=== PATIENT | male | born 1965 | race Caucasian/White ===

== ENCOUNTER 2019-06-22 06:31 | Outpatient (CLI) | payer BC ==
[2019-06-22 15:22] LABS: #Basophils 0.1 thou/uL (0.0-0.2); #Eosinphils 0.5 thou/uL (0.0-0.7); #Lymphocytes 2.3 thou/uL (1.20-3.40); #Monocytes 1.1 thou/uL (0.11-0.59); #Neutrophils 8.6 thou/uL (1.40-6.50); %Basophils 0.6 % (0.0-1.0); %Eosinophils 4.2 % (0.0-10.0); %Lymphocytes 18.6 % (21.0-51.0); %Monocytes 8.7 % (0.0-10.0); %Neutrophils 67.9 % (42.0-75.0); Hemoglobin 13.9 g/dL (14.0-18.0); Mean Corpuscular HGB CONC 34.1 g/dL (32.0-36.0); Mean Corpuscular Hemoglobin 30.3 pg (27.0-31.0); Mean Corpuscular Volume 88.9 fL (78.0-98.0); Mean Platelet Volume 7.8 fL (7.4-10.4); Platelet Count 241 thou/uL (130-400); Red Blood Cell (RBC) Count 4.58 mill/uL (4.70-6.10); White Blood Cell (WBC) Count 12.6 thou/uL (4.8-10.8)
[2019-06-22 15:43] LABS: Anion Gap 13 mmol/L (10-20); BUN (Urea Nitrogen) 12 mg/dL (8.4-25.7); Calc. Creatinine Clearance 0 mL/min (70-130); Carbon Dioxide 25 mmol/L (22-29); Chloride 102 mmol/L (98-107); Estimated GFR-MDRD 57; Glucose 73 mg/dL (70-105); Sodium 136 mmol/L (136-145)
--- NOTE | 2019-06-26 10:31 | EKG ---
Test Reason : Blood Pressure : / mmHG Vent. Rate : 061 BPM Atrial Rate : 061 BPM P-R Int : 232 ms QRS Dur : 110 ms QT Int : 424 ms P-R-T Axes : 033 078 017 degrees QTc Int : 426 ms Sinus rhythm with 1st degree A-V block Otherwise normal ECG When compared with ECG of 07-NOV-2009 11:10, No significant change was found Confirmed by DONG ASTUDILLO (2) on 06/26/2019 10:31:16 AM Referred By: VALERIO Confirmed By:DONG ASTUDILLO
== END 2019-06-22 06:32 | disposition home or self-care (01) ==
LOC: LABBT 06:31
PROVIDERS: ATTEND Surgery
DX: Z01.818 Encounter for other preprocedural examination (principal); K40.90 Unilateral inguinal hernia, without obstruction or gangrene, not specified as recurrent
CPT/HCPCS: 80048; 85025; 93005; 93010

== ENCOUNTER 2019-06-25 09:15 | Day surgery (SDC) | payer BC ==
[2019-06-22 14:33] VITALS: BMI 34.8
[2019-06-25] MEDS ORDERED: Fentanyl 100 MCG/2 ML VIAL ONE ×2 (10:29→12:30)
[2019-06-25] MEDS ORDERED: Lidocaine 2% Jelly 5 ML TUBE ONE (10:29)
[2019-06-25] MEDS ORDERED: HYDROmorphone 0.5 MG/0.5 ML SYRINGE ONE (10:29)
[2019-06-25] MEDS ORDERED: Midazolam HCl 2 mg/2 ml Vial ONE (10:29)
[2019-06-25] MEDS ORDERED: Levofloxacin 500 mg/D5W 100 ml Premix Bag ONE (10:31)
[2019-06-25] MEDS ORDERED: Bupivacaine 0.25% HCL 30 ML VIAL ONE (10:33)
[2019-06-25] MEDS ORDERED: Lidocaine 1% w/Epinephrine 1:100K 20 ML VIAL ONE (10:33)
--- NOTE | 2019-06-25 12:34 | OP ---
DATE OF PROCEDURE: 06/25/2019 PREOPERATIVE DIAGNOSIS: Left inguinal hernia. POSTOPERATIVE DIAGNOSIS: Left inguinal hernia. PROCEDURE PERFORMED: Da Jonathan laparoscopic left inguinal hernia repair with mesh, 3DMax large. ANESTHESIA: General. ESTIMATED BLOOD LOSS: Minimal. COMPLICATIONS: None. SPECIMEN: None. FINDINGS: Left inguinal hernia. DESCRIPTION OF PROCEDURE: The patient was taken to the operating room and laid supine on the operating room table. After general anesthetic was obtained, a Campos was placed. The abdomen was prepped and draped in a sterile fashion. Left subcostal 5 mm Optiview trocar was placed in usual fashion. High-flow pneumoperitoneum was obtained. An 11 mm port was placed above the umbilicus. An 8 mm robot assist ports were placed in the left and right of the umbilicus. The patient was placed in Trendelenburg position. All ports were docked to the robot. The peritoneum was taken down in the left inguinal region. There was a large left indirect inguinal hernia sac. This was dissected away from the cord structures. The preperitoneal space was bluntly dissected to pubic tubercle medially to the anterior superior iliac crest laterally. The shelving edge was fully exposed. The hernia sac was dissected back high up on to the peritoneum. 3DMax large mesh was brought in and M-labeled medial aspect was placed over pubic tubercle medially. The mesh was laid out to cover the femoral, the direct and indirect areas. The mesh was sewn via Vicryl suture to pubic tubercle medially and to the posterior fascia laterally. The peritoneum was reapproximated using 3-0 Stratafix. All needles were removed from the abdomen and accounted for. All port sites were infiltrated using local anesthetic. All ports were removed under camera visualization. Pneumoperitoneum was let down. Maxon was used to close the fascial defect below the umbilicus. All incisions were irrigated and closed using 4-0 Monocryl and Dermabond. The patient was sent to Recovery in stable condition. All instrument counts, needle counts, and lap counts were correct. Job ID: [id number]
[2019-06-25] MEDS ORDERED: Morphine 2 MG/ML SYRINGE ONE (13:16)
[2019-06-25] MEDS ORDERED: HYDROcodone/Acetaminophen 5/325 mg Tablet ONE (14:24)
== END 2019-06-25 16:35 | disposition home or self-care (01) ==
LOC: SDC 09:15
PROVIDERS: ATTEND Surgery
PROC: 0YU64JZ Supplement Left Inguinal Region with Synthetic Substitute, Percutaneous Endoscopic Approach (ICD-10-PCS; principal; 2019-06-25)
PROC: 8E0W4CZ Robotic Assisted Procedure of Trunk Region, Percutaneous Endoscopic Approach (ICD-10-PCS; principal; 2019-06-25)
DX: K40.90 Unilateral inguinal hernia, without obstruction or gangrene, not specified as recurrent (principal); Z79.84 Long term (current) use of oral hypoglycemic drugs; Z79.899 Other long term (current) drug therapy; Z88.0 Allergy status to penicillin; Z91.018 Allergy to other foods
CPT/HCPCS: C1781; J1170; J1956; J2250; J2270; J3010; S0020

== ENCOUNTER 2022-01-07 07:34 | Day surgery (SDC) | payer BC ==
[2022-01-05 13:21] VITALS: BMI 32.5
[~2022-01-07 07:34] MED LIST: Midazolam HCl 2 mg/2 ml Vial ONE; fentaNYL Citrate/PF 100 MCG/2 ML SYRINGE ONE
[2022-01-07] MEDS ORDERED: Cyclopentolate 1% Opth Drop 2 ML BOT ONE (07:57)
[2022-01-07] MEDS ORDERED: Phenylephrine 2.5% Ophth Soln 5 ML BOT ONE (07:57)
[2022-01-07] MEDS ORDERED: Famotidine/PF 20 mg/2ml Vial ONE (08:45)
[2022-01-07] MEDS ORDERED: Lidocaine 4% PF 5 ML AMP ONE (08:47)
[2022-01-07] MEDS ORDERED: PROPOFOL 200 MG/20 ML VIAL ONE (08:47)
[2022-01-07] MEDS ORDERED: Maxitrol 0.1% Opth Oint 3.5 GM TUBE ONE (08:47)
[2022-01-07] MEDS ORDERED: Phenylephrine 10 MG/ML VIAL ONE (08:47)
[2022-01-07] MEDS ORDERED: Bupivacaine 0.75% 10 ML VIAL ONE (08:47)
[2022-01-07] MEDS ORDERED: Ondansetron PF 4 MG/2 ML Vial ONE (08:47)
[2022-01-07] MEDS ORDERED: Triamcinolone 40 MG/ML VIAL ONE (08:47)
[2022-01-07] MEDS ORDERED: CEFAZOLIN 1 GM VIAL ONE (08:47)
[2022-01-07] MEDS ORDERED: Indocyanine Green 25 MG/10 ML VIAL ONE (08:47)
[2022-01-07] MEDS ORDERED: Lidocaine 1% PF 5 ML VIAL ONE ×2 (08:47)
[2022-01-07] MEDS ORDERED: EPINEPHrine 0.3 MG in Ophthalmic Irrigation Solution 500 ML IRR SCH (11:45)
== END 2022-01-07 11:15 | disposition home or self-care (01) ==
LOC: SDC 07:34
PROVIDERS: ATTEND Ophthalmology Retina Specialist
PROC: 08B43ZZ Excision of Right Vitreous, Percutaneous Approach (ICD-10-PCS; principal; 2022-01-07)
PROC: 08NE3ZZ Release Right Retina, Percutaneous Approach (ICD-10-PCS; principal; 2022-01-07)
DX: H43.312 Vitreous membranes and strands, left eye (principal); T85.22XA Displacement of intraocular lens, initial encounter; Z79.84 Long term (current) use of oral hypoglycemic drugs; Z79.899 Other long term (current) drug therapy; Z88.0 Allergy status to penicillin; Z91.018 Allergy to other foods; Z91.041 Radiographic dye allergy status
CPT/HCPCS: J0171; J0690; J2250; J2370; J2405; J2704; J3301; J3490; S0028; V2632